=== PATIENT | male | born 1980 | race Caucasian/White ===

== ENCOUNTER 2018-04-04 18:44 | Inpatient (IN) | payer OTHER ==
[2018-04-04] MEDS ORDERED: Sodium Chloride 0.9% 1,000 ML IV ONE (19:32)
[2018-04-04 19:51] LABS: HEMATOCRIT 50.7 % (41.0-60); HEMOGLOBIN 17.3 gm/dL (12-16); MANUAL DIFF REQUIRED? YES; MEAN CELL VOLUME 87.7 fl (80-99); MEAN CORPUSCULAR HGB CONC 34.2 pg (28.0-36.0); MEAN PLATELET VOLUME 7.6 fl; PLATELET COUNT 374 Th/cmm (150-400); RED BLOOD COUNT 5.78 Mil/cmm (4.30-5.70); RED CELL DISTRIBUTION WIDTH 12.5 % (11.5-20.0); WHITE BLOOD COUNT 14.8 Th/cmm (4.8-10.8)
--- NOTE | 2018-04-04 20:01 | ED Physician Chart ---
ED Chief Complaint/HPI - Patient Information Date Seen:: 04/04/18 Time Seen:: 19:15 Chief Complaint:: AMS History of Present Illness:: onset x 3 hours of AMS and ALOC with nausea; no report of trauma, LOC, H/As, S/T , neck pain, cough, C/P, SOB, Abd. Pain, A/V/D/C, fever, chills, or urinary s/s Allergies:: Allergies Allergy/AdvReac Type Severity Reaction Status Date / Time No Known Allergies Allergy Verified 04/04/18 19:17 Vitals:: Vital Signs - 8 hr 04/04/18 19:17 Temp 99.5 F HR 122 RR 16 BP 141/80 O2 Sat % 95 Historian:: Patient, Family Member Review:: Nurse's Note Reviewed ED Review of Systems - Review of Systems General/Constitutional: Fever, No chills, No weight loss, No weakness, No diaphoresis, No edema, No loss of appetite Skin: No skin lesions, No rash, No bruising Head: No headache, No light-headedness Eyes: No loss of vision, No pain, No diplopia ENT: No earache, No nasal drainage, No sore throat, No tinnitus Neck: No neck pain, No swelling, No thyromegaly, No stiffness, No mass noted Cardio Vascular: No chest pain, No palpitations, No PND, No orthopnea, No edema Pulmonary: No SOB, No cough, No sputum, No wheezing GI: Nausea, Vomiting, Diarrhea, No pain, No melena, No hematochezia, No constipation, No hematemesis G/U: No dysuria, No frequency, No hematuria, No nacturia Musculoskeletal: No bone or joint pain, No back pain, No muscle pain Endocrine: Polyuria, Polydipsia Psychiatric: No prior psych history, No depression, No anxiety, No suicidal ideation, No homicidal ideation, No auditory hallucination, No visual hallucination Hematopoietic: No bruising, No lymphadenopathy Allergic/Immuno: No urticaria, No angioedema Neurological: No syncope, No focal symptoms, No weakness, No paresthesia, No headache, No seizure, No dizziness, No confusion, No vertigo ED Past Medical History - Past Medical History Obtainable: Yes Past Medical History: HTN, DM Family History: Diabetes Melitus, HTN Social History: Non Smoker, No Alcohol, No Drug Use, Single Surgical History: None Psychiatricy History: None Medication: Reviewed Family Medical History - Family Member Mother Ethnicity: ED Physical Exam - Physical Examination General/Constitutional: Awake, Well-developed, well-nourished, Alert, No distress, GCS 15, Non-toxic appearing, Ambulatory Head: Atraumatic Eyes: Lids, conjuctiva normal, PERRL, EOMI Skin: Nl inspection, No rash, No skin lesions, No ecchymosis, Well hydrated, No lymphadenopathy ENMT: External ears, nose nl, TM canals nl, Nasal exam nl, Lips, teeth, gums nl , Oropharynx nl, Tonsils nl Neck: Nontender, Full ROM w/o pain, No JVD, No nuchal rigidity, No bruit, No mass, No stridor Respiratory: Nl effort/Exclusion, Clear to Auscultation, No Wheeze/Rhonchi/Rales Cardio Vascular: RRR, No murmur, gallop, rubs, NL S1 S2, Carotid/Femoral/Distal pulses equal bilaterally GI: No tenderness/rebounding/guarding, No organomegaly, No hernia, Normal BS's, Nondistended, No mass/bruits, No McBurney tenderness, Rectum exam nl : No CVA tenderness Extremities: No tenderness or effusion, Full ROM, normal strength in all extremities, No edema, Normal digits & nails Neuro/Psych: Alert/oriented, DTR's symmetric, Normal sensory exam, Normal motor strength, Judgement/insight normal, Mood normal, Normal gait, No focal deficits Misc: Normal back, No paraspinal tenderness ED Labs/Radiology/EKG Results - Lab Results Results: Laboratory Tests 04/04/18 04/04/18 19:24 19:35 WBC 14.8 H RBC 5.78 H Hgb 17.3 Hct 50.7 MCV 87.7 MCH 30.0 MCHC Differential 34.2 RDW 12.5 Plt Count 374 MPV 7.6 POC Glucose 427 H Comments:: WBC: 14.8; Na+: 124; K+: 5.7; Glucose: 499; BUN: 33; CO2: 10.7; + Ketones; Anion Gap: 29 - Radiology Results Comments:: NAD - EKG Interpretations EKG Time:: 19:47 Rate & Rhythm: 111; ST Comments:: LVH; non-specific st-t changes ED Septic Shock - . Is Septic Shock (SBP<90, OR Lactate>4 mmol\L) present?: No - <6hrs of presentation: Vital Signs: Vital Signs - 8 hr 04/04/18 19:17 Temp 99.5 F HR 122 RR 16 BP 141/80 O2 Sat % 95 ED Reassessment (Disposition) - Reassessment Reassessment Condition:: Improved - Diagnosis Diagnosis:: Dx: HTN; DM; Leukocytosis; ALOC; AMS; Hyperglycemia; Dehydration; N/V/D; AGE; Fever; Tachycardia; Uncontrolled Diabetes Mellitus; Hyperkalemia; Hyponatremia; DKA; Acidosis - Aftercare/Follow up Instructions Aftercare/Follow-Up Instructions:: Counseled pt regarding lab results/diagnosis & need follow up, Counseled pt & family regarding lab results/diagnosis & need follow up - Patient Disposition Discharge/Transfer:: Acute Care w/in this hosp Accepting Physician:: Dr. Raya Time Called:: 2099 Time Responded:: 21:00 Admitted to:: ICU Spoke to:: Dr. Raya Admitting Medical Physician:: Dr. Raya Condition at Disposition:: Stable, Improved
[2018-04-04 20:15] LABS: BAND NEUTROPHILE 1 % (0-10); BASOPHIL 0 % (0-3); EOSINOPHIL 0 % (0-5); LYMPHOCYTE 6 % (20-50); MONOCYTE 1 % (2-10); NEUTROPHILS 92 % (40-80); PLATELET ESTIMATE ADEQUATE (NORMAL); TOTAL CELLS COUNTED 100
[2018-04-04 20:16] LABS: ALB/GLOB RATIO 1.5 (1.0-1.8); ALBUMIN 4.6 gm/dL (4.2-5.5); ALKALINE PHOSPHATASE 83 U/L (34-104); AMYLASE SERUM 34 U/L (29-103); BILIRUBIN,TOTAL 0.9 mg/dL (0.3-1.0); BUN - UREA NITROGEN 33 mg/dL (7-25); CALCIUM SERUM 10.3 mg/dL (8.6-10.3); CARBON DIOXIDE 10.7 mEq/L (21.0-31.0); CHLORIDE 90 mEq/L (98-107); CHOLESTEROL 216 mg/dL (<200); CREATININE - SERUM 1.1 mg/dL (0.7-1.3); CREATININE KINASE 49 U/L (30-223); GFR AFRICAN-AMERICAN > 60.0 ml/min (>90); GFR NON AFRICAN-AMERICAN > 60.0 ml/min; HDL -HIGH DENSITY LIPOPROTEIN 65 mg/dL (23-92); LIPASE 40 U/L (11-82); POTASSIUM SERUM 5.7 mEq/L (3.5-5.1); SGOT 17 U/L (13-39); SGPT/ALT 24 U/L (7-52); SODIUM SERUM 124 mEq/L (136-145); TOTAL PROTEIN,SERUM 7.7 gm/dL (6.0-8.3); TRIGLYCERIDES 240 mg/dL (<150)
[2018-04-04 20:27] LABS: DDIMER QUANT < 100 ng/mL (100-400)
[2018-04-04 20:31] LABS: GLUCOSE 499 mg/dL (70-105)
[2018-04-04] MEDS ORDERED: INSULIN HUMAN REGULAR 100 UNITS/ML UNIT IV ONE (20:32)
[2018-04-04] MEDS ORDERED: INSULIN HUMAN REGULAR 100 UNITS/ML UNIT ONE (20:35)
[2018-04-04 20:50] LABS: INR 0.98 (0.5-1.4); PROTHROMBIN TIME (TEST) 10.2 SECONDS (9.5-11.5)
[2018-04-04] MEDS ORDERED: Sodium Chloride 0.9% 1,000 ML IV SCH (22:45)
[2018-04-04 22:59] VITALS: BP 136/78
[2018-04-05] MEDS ORDERED: NITROGLYCERIN OINT 2% 1 INCH PACKET TP SCH
[2018-04-05] MEDS ORDERED: Piperacillin Sodium/Tazobact 3.375 gm Vial IV ONE (00:10)
--- NOTE | 2018-04-05 09:03 | Diagnostic Imaging Report ---
Portable chest x-ray History: Pain Allowing for portable technique the heart size is normal. No focal pulmonary parenchymal processes. No hilar or mediastinal abnormalities. Impression: No acute abnormalities.
[2018-04-05 18:31] LABS: A1C % 8.1 % (4.0-6.0)
== END 2018-04-05 02:30 | disposition left against medical advice (07) | DRG 637 ==
LOC: ER 18:44 → ICU 21:40
PROVIDERS: ADMIT Internal Medicine; ATTEND Internal Medicine
DX: E11.10 Type 2 diabetes mellitus with ketoacidosis without coma (principal); G93.41 Metabolic encephalopathy; E87.1 Hypo-osmolality and hyponatremia; I10 Essential (primary) hypertension; E86.0 Dehydration; E87.5 Hyperkalemia; K52.9 Noninfective gastroenteritis and colitis, unspecified; R00.0 Tachycardia, unspecified; Z82.49 Family history of ischemic heart disease and other diseases of the circulatory system; Z53.21 Procedure and treatment not carried out due to patient leaving prior to being seen by health care provider; Z83.3 Family history of diabetes mellitus
CPT/HCPCS: 36415-UA; 71045-TC; 80053-TC; 80061-TC; 82010-TC; 82150-TC; 82550-TC; 82948-90; 83036-90; 83605; 83690-TC; 83880-TC; 84100-TC; 84484-TC; 85007-TC; 85025-TC; 85027-TC; 85379-TC; 85610-TC; 85730-TC; 93005; 94760; 96374; 96375; J1815; J2405; J2543; J7030; Z7610

== ENCOUNTER 2018-04-05 12:01 | Emergency (ER) | payer OTHER ==
[2018-04-05] MEDS ORDERED: Sodium Chloride 0.9% 1,000 ML IV ONE (12:18)
--- NOTE | 2018-04-05 12:26 | ED Physician Chart ---
ED Chief Complaint/HPI - Patient Information Date Seen:: 04/05/18 Time Seen:: 12:10 Chief Complaint:: lethargy History of Present Illness:: Patient was admitted to ICU last night with a blood sugar of 499. He felt better after he was admitted and so he left AGAINST MEDICAL ADVICE. Patient returns for lethargy and decreased level of consciousness. No chills, fever or cough. Patient has been nauseated but no vomiting or diarrhea. 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 Allergies:: Allergies Allergy/AdvReac Type Severity Reaction Status Date / Time No Known Allergies Allergy Verified 04/04/18 19:17 Vitals:: Vital Signs - 8 hr 04/05/18 12:02 Temp 98.2 F HR 90 RR 16 O2 Sat % 98 Historian:: Patient, Family Member Review:: Nurse's Note Reviewed ED Review of Systems - Review of Systems General/Constitutional: No fever, No chills, No weight loss, No weakness, No diaphoresis, No edema, No loss of appetite Skin: No skin lesions, No rash, No bruising Head: No headache, No light-headedness Eyes: No loss of vision, No pain, No diplopia ENT: No earache, No nasal drainage, No sore throat, No tinnitus Neck: No neck pain, No swelling, No thyromegaly, No stiffness, No mass noted Cardio Vascular: No chest pain, No palpitations, No PND, No orthopnea, No edema Pulmonary: No SOB, No cough, No sputum, No wheezing GI: Nausea, No vomiting, No diarrhea, No pain, No melena, No hematochezia, No constipation, No hematemesis G/U: No dysuria, No frequency, No hematuria Musculoskeletal: No bone or joint pain, No back pain, No muscle pain Endocrine: No polyuria, No polydipsia Psychiatric: No prior psych history, No depression, No anxiety, No suicidal ideation Hematopoietic: No bruising, No lymphadenopathy Allergic/Immuno: No urticaria, No angioedema Neurological: No syncope, No focal symptoms, No weakness, No paresthesia, No headache, No seizure, Dizziness, No dizziness, No confusion, No vertigo, Other ( decreased level consciousness) ED Past Medical History - Past Medical History Past Medical History: HTN, DM Family History: Diabetes Melitus, HTN Social History: Smoker, No Alcohol, Illicit Drug Use Employment:: Smokes one half pack of cigarettes a day Surgical History: None Psychiatricy History: None Medication: Reviewed Family Medical History - Family Member Mother Ethnicity: ED Physical Exam - Physical Examination General/Constitutional: Awake, Well-developed, well-nourished, Alert, No distress, GCS 15, Non-toxic appearing, Ambulatory Head: Atraumatic Eyes: Lids, conjuctiva normal, PERRL, EOMI Skin: Nl inspection, No rash, No skin lesions, No ecchymosis, Well hydrated, No lymphadenopathy ENMT: External ears, nose nl, Nasal exam nl, Lips, teeth, gums nl Neck: Nontender, Full ROM w/o pain, No JVD, No nuchal rigidity, No bruit, No mass, No stridor Respiratory: Nl effort/Exclusion, Clear to Auscultation, No Wheeze/Rhonchi/Rales Cardio Vascular: RRR, No murmur, gallop, rubs, NL S1 S2 GI: No tenderness/rebounding/guarding, No organomegaly, No hernia, Normal BS's, Nondistended, No mass/bruits, No McBurney tenderness : No CVA tenderness Extremities: No tenderness or effusion, Full ROM, normal strength in all extremities, No edema, Normal digits & nails Neuro/Psych: Alert/oriented, DTR's symmetric, Normal sensory exam, Normal motor strength, Judgement/insight normal, Mood normal, Normal gait, No focal deficits Misc: Normal back, No paraspinal tenderness ED Labs/Radiology/EKG Results - Lab Results Results: Laboratory Results - last 24 hr 04/05/18 04/05/18 12:25 12:25 WBC 13.1 H RBC 5.16 Hgb 15.5 Hct 45.6 D MCV 88.4 MCH 30.1 H MCHC Differential 34.1 RDW 12.7 Plt Count 315 MPV 6.6 Neutrophils % 84.1 H Lymphocytes % 11.6 L Monocytes % 3.6 Eosinophils % 0.5 Basophils % 0.2 Sodium 128 L Potassium 4.6 Chloride 99 Carbon Dioxide 23.1 Anion Gap 10.5 BUN 23 Creatinine 0.8 Est GFR ( Amer) > 60.0 Est GFR (Non-Af Amer) > 60.0 BUN/Creatinine Ratio 28.8 Glucose 263 H D Calcium 8.8 Magnesium 1.8 L Laboratory Last Values WBC 13.1 Th/cmm (4.8-10.8) H 04/05/18 12:25 RBC 5.16 Mil/cmm (4.30-5.70) 04/05/18 12:25 Hgb 15.5 gm/dL (12-16) 04/05/18 12:25 Hct 45.6 % (41.0-60) D 04/05/18 12:25 MCV 88.4 fl (80-99) 04/05/18 12:25 MCH 30.1 pg (26.0-30.0) H 04/05/18 12:25 MCHC Differential 34.1 pg (28.0-36.0) 04/05/18 12:25 RDW 12.7 % (11.5-20.0) 04/05/18 12:25 Plt Count 315 Th/cmm (150-400) 04/05/18 12:25 MPV 6.6 fl 04/05/18 12:25 Neutrophils % 84.1 % (40.0-80.0) H 04/05/18 12:25 Lymphocytes % 11.6 % (20.0-50.0) L 04/05/18 12:25 Monocytes % 3.6 % (2.0-10.0) 04/05/18 12:25 Eosinophils % 0.5 % (0.0-5.0) 04/05/18 12:25 Basophils % 0.2 % (0.0-2.0) 04/05/18 12:25 Sodium 128 mEq/L (136-145) L 04/05/18 12:25 Potassium 4.6 mEq/L (3.5-5.1) 04/05/18 12:25 Chloride 99 mEq/L (98-107) 04/05/18 12:25 Carbon Dioxide 23.1 mEq/L (21.0-31.0) 04/05/18 12:25 Anion Gap 10.5 (7.0-16.0) 04/05/18 12:25 BUN 23 mg/dL (7-25) 04/05/18 12:25 Creatinine 0.8 mg/dL (0.7-1.3) 04/05/18 12:25 Est GFR ( Amer) > 60.0 ml/min (>90) 04/05/18 12:25 Est GFR (Non-Af Amer) > 60.0 ml/min 04/05/18 12:25 BUN/Creatinine Ratio 28.8 04/05/18 12:25 Glucose 263 mg/dL (70-105) H D 04/05/18 12:25 Calcium 8.8 mg/dL (8.6-10.3) 04/05/18 12:25 Magnesium 1.8 mg/dL (1.9-2.7) L 04/05/18 12:25 ED Assessment - Assessment General Assessment: My plan was to admit the patient. I spoke to Dr. Alonzo at about 1400 and he wanted additional tests: CT head, chest x-ray and urine drug screen. CT head and chest x-ray were normal. At 1530 patient stated he wanted to leave. Urinalysis was not back yet. I told him I would call him if he has a urinary tract infection ED Septic Shock - . Is Septic Shock (SBP<90, OR Lactate>4 mmol\L) present?: No - <6hrs of presentation: Vital Signs: Vital Signs - 8 hr 04/05/18 12:02 Temp 98.2 F HR 90 RR 16 O2 Sat % 98 ED Reassessment (Disposition) - Reassessment Reassessment Condition:: Unchanged - Diagnosis Diagnosis:: Diabetes with poor blood sugar control; leukocytosis - Aftercare/Follow up Instructions Aftercare/Follow-Up Instructions:: Refer to Discharge Instructions - Patient Disposition Discharge/Transfer:: Home Condition at Disposition:: Stable, Improved
[2018-04-05 12:33] LABS: % BASOPHILS 0.2 % (0.0-2.0); % EOSINOPHILS 0.5 % (0.0-5.0); % LYMPHOCYTES 11.6 % (20.0-50.0); % MONOCYTES 3.6 % (2.0-10.0); % NEUTROPHILS 84.1 % (40.0-80.0); EOSINOPHILE ABSOLUTE 0.1 Th/cmm (0.1-0.4); HEMOGLOBIN 15.5 gm/dL (12-16); LYMPHOCYTE ABSOLUTE 1.5 Th/cmm (1.5-3.0); MEAN CELL VOLUME 88.4 fl (80-99); MEAN CORPUSCULAR HEMOGLOBIN 30.1 pg (26.0-30.0); MEAN CORPUSCULAR HGB CONC 34.1 pg (28.0-36.0); MEAN PLATELET VOLUME 6.6 fl; MONOCYTE ABSOLUTE 0.5 Th/cmm (0.3-1.0); PLATELET COUNT 315 Th/cmm (150-400); RED BLOOD COUNT 5.16 Mil/cmm (4.30-5.70); RED CELL DISTRIBUTION WIDTH 12.7 % (11.5-20.0); WHITE BLOOD COUNT 13.1 Th/cmm (4.8-10.8)
[2018-04-05 12:34] LABS: HEMATOCRIT 45.6 % (41.0-60)
[2018-04-05 12:48] LABS: ANION GAP 10.5 (7.0-16.0); BUN - UREA NITROGEN 23 mg/dL (7-25); CALCIUM SERUM 8.8 mg/dL (8.6-10.3); CARBON DIOXIDE 23.1 mEq/L (21.0-31.0); CHLORIDE 99 mEq/L (98-107); CREATININE - SERUM 0.8 mg/dL (0.7-1.3); GFR AFRICAN-AMERICAN > 60.0 ml/min (>90); GFR NON AFRICAN-AMERICAN > 60.0 ml/min; MAGNESIUM 1.8 mg/dL (1.9-2.7); POTASSIUM SERUM 4.6 mEq/L (3.5-5.1); SODIUM SERUM 128 mEq/L (136-145)
[2018-04-05 12:49] LABS: GLUCOSE 263 mg/dL (70-105)
--- NOTE | 2018-04-05 15:05 | Diagnostic Imaging Report ---
CT scan of the brain without contrast History: Headache Total DLP equals 693 CTDI equals 35.4 Axial sections were obtained from the base of the skull to the vertex. There is a normal ventricular system size. No focal parenchymal lesions are seen. No evidence of any mass effect or shift of midline structures. No extra-axial masses or abnormal fluid collections. Impression: Negative examination
== END 2018-04-05 15:40 | disposition home or self-care (01) ==
LOC: ER 12:01
DX: E11.649 Type 2 diabetes mellitus with hypoglycemia without coma (principal); D72.829 Elevated white blood cell count, unspecified; I10 Essential (primary) hypertension; F17.210 Nicotine dependence, cigarettes, uncomplicated
CPT/HCPCS: 36415-UA; 70450-TC; 71045-TC; 80048-TC; 83735-TC; 84484-TC; 85025-TC